=== PATIENT | male | born 1990 | race African-American/Black ===

== ENCOUNTER 2017-06-10 08:09 | Emergency (ER) | payer SELFPAY ==
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
== END 2017-06-10 09:40 | disposition home or self-care (01) ==
LOC: MADERS 08:09
DX: S06.0X1A Concussion with loss of consciousness of 30 minutes or less, initial encounter (principal); S29.012A Strain of muscle and tendon of back wall of thorax, initial encounter; V43.52XA Car driver injured in collision with other type car in traffic accident, initial encounter
CPT/HCPCS: 70450

== ENCOUNTER 2017-12-23 11:31 | Emergency (ER) | payer SELFPAY | END 2017-12-23 12:08 | disposition home or self-care (01) | LOC: MADERS 11:31 | DX: J03.90 Acute tonsillitis, unspecified (principal) | CPT/HCPCS: 87081; 87430; 99283 ==

== ENCOUNTER 2018-03-11 11:26 | Emergency (ER) | payer SELFPAY | END 2018-03-11 12:05 | disposition home or self-care (01) | LOC: MADERS 11:26 | DX: R23.4 Changes in skin texture (principal) | CPT/HCPCS: 99283 ==

== ENCOUNTER 2021-04-16 08:45 | Emergency (ER) | payer SELFPAY ==
[2021-04-16 09:29] LABS: #Basophils 0.2 thou/uL (0.0-0.2); #Lymphocytes 1.5 thou/uL (1.20-3.40); #Monocytes 1.3 thou/uL (0.11-0.59); #Neutrophils 12.7 thou/uL (1.40-6.50); %Eosinophils 0.1 % (0.0-10.0); %Lymphocytes 9.4 % (21.0-51.0); %Monocytes 8.3 % (0.0-10.0); %Neutrophils 81.2 % (42.0-75.0); Hemoglobin 14.9 g/dL (14.0-18.0); Mean Corpuscular HGB CONC 32.3 g/dL (32.0-36.0); Mean Corpuscular Hemoglobin 30.2 pg (27.0-31.0); Mean Corpuscular Volume 93.6 fL (78.0-98.0); Mean Platelet Volume 7.8 fL (7.4-10.4); Platelet Count 237 thou/uL (130-400); RBC Distribution Width 12.4 % (11.5-14.5); Red Blood Cell (RBC) Count 4.93 mill/uL (4.70-6.10); White Blood Cell (WBC) Count 15.7 thou/uL (4.8-10.8)
[2021-04-16 09:39] LABS: ALT (SGPT) 23 U/L (8-55); AST (SGOT) 18 U/L (5-34); Albumin 4.6 g/dL (3.5-5.0); Alkaline Phosphatase 81 U/L (40-110); Anion Gap 15 mmol/L (10-20); BUN (Urea Nitrogen) 11 mg/dL (8.9-20.6); Calc. Creatinine Clearance 0 mL/min (70-130); Calcium 9.8 mg/dL (7.8-10.44); Carbon Dioxide 24 mmol/L (22-29); Chloride 102 mmol/L (98-107); Globulin 2.9 g/dL (2.4-3.5); Glucose 85 mg/dL (70-105); Potassium 3.7 mmol/L (3.5-5.1); Protein, Total 7.5 g/dL (6.0-8.3); Sodium 137 mmol/L (136-145)
[2021-04-16] MEDS ORDERED: methylPREDNISolone Sod Succ/PF 125 MG/2 ML VIAL ONE (09:40)
[2021-04-16] MEDS ORDERED: Ampicillin/Sulbactam 3 GM VIAL ONE (09:40)
[2021-04-16] MEDS ORDERED: Sodium Chloride 0.9% 100 ML ONE (09:40)
[2021-04-16] MEDS ORDERED: Iopamidol 370 76% 100 ML VIAL ONE (12:04)
== END 2021-04-16 10:32 | disposition home or self-care (01) ==
LOC: MADERS 08:45
DX: J36 Peritonsillar abscess (principal)
CPT/HCPCS: 70491; 80053; 85025; 96365; 96375; J0295; J2930; J3490; Q9967

== ENCOUNTER 2023-11-02 19:39 | Emergency (ER) | payer SELFPAY ==
[2023-11-02] MEDS ORDERED: Sulfameth/Trimethoprim DS 800-160mg TAB ONE (20:29)
[2023-11-02] MEDS ORDERED: Cephalexin 500 MG CAP ONE (20:29)
[2023-11-02] MEDS ORDERED: HYDROcodone/Acetaminophen 5/325 mg Tablet ONE (20:30)
[2023-11-02] MEDS ORDERED: Ibuprofen 800 MG TAB ONE (20:30)
== END 2023-11-02 20:57 | disposition home or self-care (01) ==
LOC: MADERS 19:39
DX: L02.13 Carbuncle of neck (principal); F17.210 Nicotine dependence, cigarettes, uncomplicated
CPT/HCPCS: 99283